=== PATIENT | female | born 1985 | race Caucasian/White ===

== ENCOUNTER 2016-08-03 18:37 | Emergency (ER) | payer OTHER ==
[~2016-08-03] VITALS: Ht 162.6 cm; Wt 86.4 kg
[~2016-08-03 18:37] MED LIST: OXYC1TAB24 PO
[2016-08-03 18:50] VITALS: BP 150/93; PULSE 89; RESP 16; O2SAT 99
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
[2016-08-03 20:48] LABS: APPEARANCE,URINE CLEAR (CLEAR,HAZY); COLOR,URINE STRAW (YELLOW); OCCULT BLOOD,URINE MODERATE (NEGATIVE); UROBILINOGEN,URINE NORMAL (NORMAL)
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
[2016-08-03] MEDS ORDERED: _HYDROcodone/APAP 5-325 mg Tablet PO PRN (21:00)
[2016-08-03 21:15] VITALS: BP 138/81; PULSE 88; RESP 20; O2SAT 98
== END 2016-08-03 21:16 | disposition home or self-care (01) ==
LOC: SED 18:37
DX: S13.9XXA Sprain of joints and ligaments of unspecified parts of neck, initial encounter (principal); S29.012A Strain of muscle and tendon of back wall of thorax, initial encounter; S10.93XA Contusion of unspecified part of neck, initial encounter; R22.0 Localized swelling, mass and lump, head; V48.6XXA Car passenger injured in noncollision transport accident in traffic accident, initial encounter; Y92.410 Unspecified street and highway as the place of occurrence of the external cause; Y93.89 Activity, other specified; Y99.8 Other external cause status; F17.200 Nicotine dependence, unspecified, uncomplicated; Z90.49 Acquired absence of other specified parts of digestive tract
CPT/HCPCS: 70450; 70486; 72125; 81000; 81025; 87086; 87088; 96372; 99285; J1885